=== PATIENT | male | born 1960 | race Caucasian/White ===

== ENCOUNTER 2020-05-21 14:13 | Observation (INO) ==
[2020-05-21 14:29] VITALS: BMI 25.7
[2020-05-21] MEDS ORDERED: NS 250 ML IV 250 ML IV ONE ×2 (15:25→20:36)
[2020-05-21 15:27] LABS: BASOPHILS # (AUTO) 0.1 X10^3/uL (0.0-0.1); EOSINOPHILS % (AUTO) 0.2 % (0.9-2.9); HEMOGLOBIN 14.8 g/dL (13.5-18.0); MONOCYTES # (AUTO) 1.2 x10^3/uL (0.3-0.8)
[2020-05-21] MEDS: NS 250 ML IV 250 ML IV STA ×2 (15:32→20:45)
[2020-05-21 15:35] LABS: BASOPHILS % (AUTO) 0.5 % (0.2-1.0); HEMATOCRIT 44.8 % (42.0-54.0); LYMPHOCYTES # (AUTO) 1.6 X10^3/uL (1.3-2.9); LYMPHOCYTES % (AUTO) 8.4 % (21.0-51.0); MEAN CORPUSCULAR HGB CONC 33.1 g/dL (33.0-35.0); MEAN CORPUSCULAR VOLUME 102.8 fL (80.0-100.0); MONOCYTES % (AUTO) 5.9 % (0.0-13.0); NEUTROPHILS # (AUTO) 16.7 x10^3/uL (2.2-4.8); PLATELET COUNT 221 X10^3/uL (150.0-450.0); RED BLOOD COUNT 4.36 X10^6/uL (4.7-6.0); WHITE BLOOD COUNT 19.7 X10^3/uL (3.6-10.0)
[2020-05-21 15:36] LABS: ALANINE AMINOTRANSFERASE 118 Units/L (12-78); ALKALINE PHOSPHATASE 613 Units/L (46-116); AMYLASE 32 Units/L (25-115); ASPARTATE AMINO TRANSFERASE 233 Units/L (15-37); BLOOD UREA NITROGEN 22 mg/dL (7-18); CARBON DIOXIDE 26.9 mmol/L (21-32); CHLORIDE 100 mmol/L (98-107); COR CA(FOR HYPOALB) 10.6 mg/dL (8.5-10.1); CREATININE 1.25 mg/dL (0.70-1.30); LIPASE 173 Units/L (73-393); SODIUM 138 mmol/L (136-145); TOTAL PROTEIN 6.1 g/dL (6.4-8.2); eGFR NON BLACK RACES > 60 (>60)
[2020-05-21 16:18] LABS: GIANT PLATELET RARE; PLATELET MORPHOLOGY COMMENT NORMAL (NORMAL); TARGET CELLS SLIGHT
--- NOTE | 2020-05-21 17:56 | DR.DIZZY ---
HPI Time seen Time Seen by Provider: 05/21/20 15:05 PCP Primary Care Physician: FELIPA HPI Comment HPI Comment: PATIENT WITH A HISTORY OF LIVER DISEASE, WITH ASCITES UNDERWENT PARACENTESIS AT [facility] COMPLAINS OF LOW BLOOD PRESSURE AND WEAKNESS TODAY. DENIES ABDOMINAL PAIN, CHEST PAIN, DYSPNEA OR DIARRHEA. PATIENT COMPLAINS OF A NONPRODUCTIVE COUGH, DENIES DYSPNEA OR CHEST PAIN. Complaint Chief Complaint Doctor Comments: WEAKNESS AND DIZZINESS Chief Complaint:: PT COMPLAINTS OF FLUIDS BUILT UP, LOW BP, DIZZINESS, NO APPETITIE, WEAK AND STATES I HAVE TO LAY DOWN SOMEWHERE. HAD ABDOMEN PARACETITIS DONE IN [facility] Self Treatment fo Chief Complaint: WAS IN [facility] IN [facility] 05/11/20 COVID-19 Coronavirus risk:travel/contact w/high risk person: No Has patient experienced Coronavirus symptoms: No Source History Provided: Patient and Family Member Mode of Arrival Mode of Arrival: Wheelchair Timing Onset of Chief Complaint: 05/18/20 Symptom Onset: Known Location of Weakness Weakness Location: Generalized Context Stroke Symptoms: None Associated signs and symptoms Associated Signs and Symptoms: Faintness and Weak PMH PMH Past Medical History: Yes Past Medical History: Angina Past Surgical History: Yes Surgical History: Other Past Surgical History Comment: HERNIA Family History History of Family Medical Conditions: Yes Family Medical History: Cancer Social History Does any household member use tobacco: Yes Alcohol Use: DAILY Do you use any recreational Drugs:: No Lives With: Spouse Lives Where: Home Travel Risk Coronavirus risk:travel/contact w/high risk person: No Has patient experienced Coronavirus symptoms: No Infectious screening In the last 2 months have you had wt loss of >10#?: NO Have you had fever, night sweats or hemotysis?: No Have you traveled outside the country in the last 6 months?: No Isolation: Standard ROS Review of Systems Constitutional: See HPI Eyes: No Symptoms Reported ENTM: No Symptoms Reported Respiratoy: No Symptoms Reported Cardiovascular: No Symptoms Reported Gastrointestinal/Abdominal: No Symptoms Reported Genitourinary: No Symptoms Reported Neurological: No Symptoms Reported Musculoskeletal: No Symptoms Reported Integumentary: No Symptoms Reported Hematologic/Lymphatic: No Symptoms Reported Endocrine: No Symptoms Reported Psychiatric: No Symptoms Reported All Other Systems: Reviewed and Negative PE Vital Signs Vitals: Temperature 98.4 F Pulse Rate 91 Respiratory Rate 15 Blood Pressure 95/67 O2 Sat by Pulse Oximetry 97 General Limitations: No Limitations General Appearance: Alert and In No Apparent Distress Head Head Exam: Normal Inspection Eyes Eye exam: Normal Appearance, PERRL and EOMI Pupils: Regular, Round: Bilateral and Irregular: Bilateral ENT ENT Exam: Normal Exam, Normal Oropharynx and Normal External Ear Exam Neck Neck Exam: Normal Inspection and Full ROM Chest Chest Inspection: Normal Inspection Respiratory Respiratory Exam: Normal Lung Sounds Bilat Respiratory Exam: Bilateral: Clear to Auscultation Cardiovascular Cardiovascular Exam: Regular Rate and Normal Rhythm Abdominal Exam Abdominal Exam: Normal Inspection, Normal Bowel Sounds and Soft Abdominal Tenderness: Epigastrium and Mild Rectal Rectal Exam: Deferred Extremeties Extremities Exam: Normal Inspection and Full ROM Back Back Exam: Normal Inspection and Full ROM Neurologic Neurological Exam: Alert and Oriented X3 Psychiatric Psychiatric Exam: Normal Affect and Normal Mood Skin Skin Exam: Warm, Dry, Intact and Normal Color MDM Differential Diagnosis Differential Diagnosis: Dehydration Differential Diagnosis Comment: PNEUMONIA, CHRONIC LIVER DISEASE, COVID COURSE Treatment Treatment: IV NORMAL SALINE 50ML/HR AND AFTER 2 SETS BLOOD CULTURES, ADMINISTERED ROCEPHIN 1GM IVBP Reevaluation 1st: Unchanged Consultation Call Returned: 15:53 Consultation Comments: DISCUSSED WITH DR BOSS FOR ADMIT TO OBSERVATION ROR Labs Reviewed Laboratory Results Reviewed?: Yes Result Diagrams: 05/21/20 14:50 05/21/20 14:50 Laboratory: WBC 19.7 X10^3/uL (3.6-10.0) H 05/21/20 14:50 RBC 4.36 X10^6/uL (4.7-6.0) L 05/21/20 14:50 Hgb 14.8 g/dL (13.5-18.0) 05/21/20 14:50 Hct 44.8 % (42.0-54.0) 05/21/20 14:50 MCV 102.8 fL (80.0-100.0) H 05/21/20 14:50 MCH 34.0 pg (27.0-34.0) 05/21/20 14:50 MCHC 33.1 g/dL (33.0-35.0) 05/21/20 14:50 RDW 15.0 % (11.6-16.5) 05/21/20 14:50 Plt Count 221 X10^3/uL (150.0-450.0) 05/21/20 14:50 Plt Count Comment Adequate (ADEQUATE) 05/21/20 14:50 MPV 12.0 fL (7.4-11.0) H 05/21/20 14:50 Neut % (Auto) 85.0 % (42.0-75.0) H 05/21/20 14:50 Lymph % (Auto) 8.4 % (21.0-51.0) L 05/21/20 14:50 [place] % (Auto) 5.9 % (0.0-13.0) 05/21/20 14:50 Eos % (Auto) 0.2 % (0.9-2.9) L 05/21/20 14:50 Baso % (Auto) 0.5 % (0.2-1.0) 05/21/20 14:50 Neut # (Auto) 16.7 x10^3/uL (2.2-4.8) H 05/21/20 14:50 Lymph # (Auto) 1.6 X10^3/uL (1.3-2.9) 05/21/20 14:50 Brantley # (Auto) 1.2 x10^3/uL (0.3-0.8) H 05/21/20 14:50 Eos # (Auto) 0.0 x10^3/uL (0.0-0.2) 05/21/20 14:50 Baso # (Auto) 0.1 X10^3/uL (0.0-0.1) 05/21/20 14:50 Absolute Nucleated RBC 0.1 /100WBC 05/21/20 14:50 Giant Platelets Rare 05/21/20 14:50 Plt Morphology Comment Normal (NORMAL) 05/21/20 14:50 RBC Morphology Abnormal (NORMAL) 05/21/20 14:50 Target Cells Slight A 05/21/20 14:50 Sodium 138 mmol/L (136-145) 05/21/20 14:50 Corrected Sodium TNP 05/21/20 14:50 Potassium 4.4 mmol/L (3.5-5.1) 05/21/20 14:50 Chloride 100 mmol/L (98-107) 05/21/20 14:50 Carbon Dioxide 26.9 mmol/L (21-32) 05/21/20 14:50 BUN 22 mg/dL (7-18) H 05/21/20 14:50 Creatinine 1.25 mg/dL (0.70-1.30) 05/21/20 14:50 Est GFR (MDRD) Af Amer > 60 (>60) 05/21/20 14:50 Est GFR (MDRD) Non-Af > 60 (>60) 05/21/20 14:50 Glucose 107 mg/dL (65-99) H 05/21/20 14:50 Calcium 9.0 mg/dL (8.5-10.1) 05/21/20 14:50 Corrected Calcium 10.6 mg/dL (8.5-10.1) H 05/21/20 14:50 Total Bilirubin 6.30 mg/dL (0.2-1.0) H 05/21/20 14:50 AST 233 Units/L (15-37) H 05/21/20 14:50 ALT 118 Units/L (12-78) H 05/21/20 14:50 Alkaline Phosphatase 613 Units/L (46-116) H 05/21/20 14:50 Total Protein 6.1 g/dL (6.4-8.2) L 05/21/20 14:50 Albumin 2.0 g/dL (3.4-5.0) L 05/21/20 14:50 Globulin 4.1 g/dL (2.5-4.5) 05/21/20 14:50 Albumin/Globulin Ratio 0.5 Ratio (1.1-2.1) L 05/21/20 14:50 Amylase 32 Units/L (25-115) 05/21/20 14:50 Lipase 173 Units/L (73-393) 05/21/20 14:50 Specimen Type Clean catch urine 05/21/20 19:05 Urine Color [place]anna (YELLOW) 05/21/20 19:05 Urine Appearance Cloudy (CLEAR) 05/21/20 19:05 Urine pH 5.0 (5.0 - 8.0) 05/21/20 19:05 Ur Specific [place] 1.025 (1.000-1.030) 05/21/20 19:05 Urine Protein 1+ (NEGATIVE) 05/21/20 19:05 Urine Glucose (UA) Negative (NEGATIVE) 05/21/20 19:05 Urine Ketones 1+ (NEGATIVE) 05/21/20 19:05 Urine Occult Blood 1+ (NEGATIVE) 05/21/20 19:05 Urine Nitrite Positive (NEGATIVE) 05/21/20 19:05 Urine Bilirubin 3+ (NEGATIVE) 05/21/20 19:05 Urine Urobilinogen 3+ (NORMAL) 05/21/20 19:05 Ur Leukocyte Esterase 2+ (NEGATIVE) 05/21/20 19:05 Urine RBC 5-10 /HPF (0-3) A 05/21/20 19:05 Urine WBC 10-20 /HPF (0-5) A 05/21/20 19:05 Ur Squamous Epith Cells Few /HPF (NEGATIVE) 05/21/20 19:05 Amorphous Sediment 3+ /HPF (NEGATIVE) 05/21/20 19:05 Urine Bacteria 1+ /HPF (NEGATIVE) 05/21/20 19:05 Ur Culture Indicated? Yes/culture set up 05/21/20 19:05 SARS-CoV-2 (PCR) Negative (NEGATIVE) 05/21/20 20:00 Influenza Type A (PCR) Negative (NEGATIVE) 05/21/20 20:00 Influenza Type B (PCR) Negative (NEGATIVE) 05/21/20 20:00 RSV (PCR) Negative (NEGATIVE) 05/21/20 20:00 XRAY X-ray Results: CHEST XRAY C/W RIGHT BASILAR DENSITY EKG Rate: 96 [place]: Normal Rhythm: NSR (PROLONGED QT) Opioid Opioid Risk Tool Age (Abdirahman box if 16-45): No Total: 0 Total Score Risk Category: Low Risk Copyright: Wang CASILLAS predicting aberrant behaviors Diagnosis Discharge Problem: Pneumonia, Urinary tract infection, Chronic alcoholic liver disease
--- NOTE | 2020-05-21 18:28 | RAD ---
HISTORYHPI Comment: PATIENT WITH A HISTORY OF LIVER DISEASE, WITH ASCITES UNDERWENT PARACENTESIS AT [facility] COMPLAINS OF LOW BLOOD PRESSURE AND WEAKNESS TODAY. DENIES ABDOMINAL PAIN, CHEST PAIN, DYSPNEA OR DIARRHEASTUDYCHEST, 1 VIEWCOMPARISONNoneFINDINGSThe trachea is midline. The cardiac silhouette is unremarkable . The lungs demonstrate hazy density in the right lung base which could be due to early changes pneumonia. The bony thorax is unremarkable.IMPRESSIONHazy density in the right lung base which could be due to early changes of pneumoniaElectronically signed by: ALPA STARR (May 21, 2020 18:24:47)
[2020-05-21 19:12] LABS: BILIRUBIN,URINE 3+ (NEGATIVE); BLOOD/HEMOGLOBIN,URINE 1+ (NEGATIVE); GLUCOSE, URINE NEGATIVE (NEGATIVE); KETONES,URINE 1+ (NEGATIVE); LEUKOCYTE ESTERASE ,URINE 2+ (NEGATIVE); NITRITES,URINE POSITIVE (NEGATIVE); PROTEIN,URINE 1+ (NEGATIVE); UROBILINOGEN,URINE 3+ (NORMAL)
[2020-05-21 19:27] LABS: APPEARANCE,URINE CLOUDY (CLEAR); COLOR,URINE AMBER (YELLOW)
[2020-05-21 19:28] LABS: AMORPHOUS SEDIMENT,UR 3+ /HPF (NEGATIVE); BACTERIA,URINE 1+ /HPF (NEGATIVE); SQUAMOUS EPITHELIAL CELL,UR FEW /HPF (NEGATIVE)
[2020-05-21] MEDS ORDERED: ROCEPHIN 1 GRAM IV PREMIX 1 G/50 ML IV.SOLN. IV ONE ×2 (20:03→20:36)
[2020-05-21] MEDS ORDERED: ZOFRAN INJ 4 MG VIAL IVP PRN (22:49)
[2020-05-21] MEDS ORDERED: ZITHROMAX INJ 500 MG VIAL 500 MG in NS 250 ML IV 250 ML IV SCH (23:00)
[2020-05-21] MEDS: NS 1000 ML 1,000 ML IV SCH (23:43)
[2020-05-22] MEDS ORDERED: SALINE 3% 15 ML NEB TX NEB ONE (00:36)
[2020-05-22] MEDS ORDERED: SALINE 3% 15 ML NEB TX ONE (00:39)
[2020-05-22] MEDS: DUONEB 0.5 MG/3 MG (3 mL) NEB SCH ×4 (08:31→20:25)
[2020-05-22 09:27] LABS: BASOPHILS # (AUTO) 0.1 X10^3/uL (0.0-0.1); BASOPHILS % (AUTO) 0.3 % (0.2-1.0); EOSINOPHILS # (AUTO) 0.1 x10^3/uL (0.0-0.2); EOSINOPHILS % (AUTO) 0.3 % (0.9-2.9); HEMATOCRIT 41.9 % (42.0-54.0); HEMOGLOBIN 13.8 g/dL (13.5-18.0); LYMPHOCYTES # (AUTO) 1.4 X10^3/uL (1.3-2.9); LYMPHOCYTES % (AUTO) 8.6 % (21.0-51.0); MEAN CORPUSCULAR HEMOGLOBIN 33.8 pg (27.0-34.0); MEAN CORPUSCULAR HGB CONC 32.8 g/dL (33.0-35.0); MEAN PLATELET VOLUME 11.8 fL (7.4-11.0); NEUTROPHILS # (AUTO) 13.7 x10^3/uL (2.2-4.8); NEUTROPHILS % (AUTO) 84.8 % (42.0-75.0); PLATELET COUNT 183 X10^3/uL (150.0-450.0); RED BLOOD COUNT 4.07 X10^6/uL (4.7-6.0); RED CELL DISTRIBUTION WIDTH 15.5 % (11.6-16.5); WHITE BLOOD COUNT 16.2 X10^3/uL (3.6-10.0)
[2020-05-22 09:43] LABS: ALANINE AMINOTRANSFERASE 105 Units/L (12-78); ALBUMIN 1.8 g/dL (3.4-5.0); ALKALINE PHOSPHATASE 566 Units/L (46-116); ASPARTATE AMINO TRANSFERASE 171 Units/L (15-37); BLOOD UREA NITROGEN 24 mg/dL (7-18); CALCIUM 8.4 mg/dL (8.5-10.1); CARBON DIOXIDE 27.7 mmol/L (21-32); CHLORIDE 102 mmol/L (98-107); COR CA(FOR HYPOALB) 10.2 mg/dL (8.5-10.1); CREATININE 1.27 mg/dL (0.70-1.30); SODIUM 138 mmol/L (136-145); TOTAL PROTEIN 5.5 g/dL (6.4-8.2); eGFR NON BLACK RACES > 60 (>60)
[2020-05-22] MEDS: FORTAZ or TAZICEF VIAL INJ 1 G in NS 100 ML IV + SPIKE MINIBAG* 100 ML IV SCH ×3 (10:21→21:00)
[2020-05-22] MEDS: LEVAQUIN PREMIX IV 500 MG 500 MG/100 ML BAG IV SCH (10:22)
[2020-05-22] MEDS: LOVENOX INJ 40 MG SYR SC SCH (11:48)
--- NOTE | 2020-05-22 15:08 | US ---
HISTORYABDOMINAL DISTENTION, LIVER DISEASESTUDYLIVERCOMPARISONReference is made to the CT abdomen dated May 13, 2020.TECHNIQUEMultiple ryan scale and color flow Doppler images of the abdomen were obtained.FINDINGSThe liver appears normal contour. Increased echogenicity of the liver, compatible hepatic steatosis. The liver measures approximately 16 cm in the craniocaudal dimension. No intraparenchymal mass or intrahepatic biliary ductal dilatation can be identified.The gallbladder wall is upper limits of normal, measuring 3.5 mm. The common bile duct is normal measuring 0.9 mm.The visualized portions of the pancreas are normal in their echotexture and size.The right kidney is normal in echotexture and size. The right kidney measures 11.3 x 5.1 x 5.9 cm. No mass, hydronephrosis, or stone can be identified.Ascites seen in all 4 quadrants.IMPRESSION1. Gallbladder wall thickening, which may be exaggerated by ascites.2. Ascites in all 4 quadrants.3. Suggestion of hepatic steatosis.Electronically signed by: Winston Blackburn (May 22, 2020 15:06:33)
--- NOTE | 2020-05-22 15:36 | DR.CONSULT ---
Consult - Consultation for Day of: Date: 05/22/20 - Chief Complaint Chief Complaint: Patient referred for for liver disease and ascites. Patient with complaints of RLQ pain. - History of Present Illness History of Present Illness: Patient is a 60 yo male who was referred for for liver disease and ascites. Patient with complaints of RLQ pain. Patient denies dysphagia, dyspepsia, nausea, vomiting, constipation, diarrhea, melena and hematochezia. Patient states he was in [facility] 05/11/20 and had paracentesis, patient states they told him everything was ok with his liver that he did not have cirrhosis. Last colon was 10 years ago no polyps, No previous EGD noted. Patient with history of heavy alcohol use drinking a pint a day for the last 10-20 years quit on Thursday. WBC 16.2, Hgb 13.8, Plt 183, BUN 24, Creatinine 1.27, T. Bili 4.5, AST 171, ALT 105, ALP 566 - Past Medical History Past Medical History: Angina - Past Surgical History Surgical History: Other - Family History Family Medical History: Cancer - Social History Does patient currently use any type of tobacco product: Yes Have you used tobacco products in the last 12 months: Yes Type of Tobacco Use: Cigarettes Does any household member use tobacco: Yes Alcohol Use: Heavy, DAILY Drug Use: None - Medications Home Medications: No Known Drug Allergies Allergy (Verified 05/21/20 23:03) CONTINUE taking the following medications alprazolam 0.5 mg PO DAILY 05/22/20 [History] - Review of Systems Gastrointestinal: Abdominal Pain. denies: Nausea, Vomiting, Diarrhea, Constipation, Melena, Hematochezia, Other - Physical Exam Vital Signs: Temperature 97.1 F Pulse Rate [Left Brachial] 85 Pulse Rate 85 Respiratory Rate 18 Blood Pressure [Left Arm] 96/67 Blood Pressure 95/67 O2 Sat by Pulse Oximetry 94 Oriented: Normal Eyes: Normal Ear: Normal Nose: Normal Throat: Normal Respiratory: Clear Throughout Cardiovascular: Normal : Normal Auscultation: Bowel Sounds: Normal Palpation: Other (Abdominal distention, ascites) Tenderness: Normal Skin: Normal Musculoskeletal: Normal Psychiatric: Normal Mood Description: Calm Affect: Normal Speech Pattern: Clear, Appropriate - Plan Plan: Assesment. 1. Abnormal LFTs, Alcoholic steatohepatitis. 2. Cirrhosis with portal hyeprtension with Ascites likely secondary to ETOH abuse r/o other etiologies. Plan. 1. Monitor LFTs, Abnormal LFT Panel, Hep profile, Abdominal US, EGD On . Plan reviewed with Dr. Coronel - Allergies Allergies/Adverse Reactions: Allergies Allergy/AdvReac Type Severity Reaction Status Date / Time No Known Drug Allergies Allergy Verified 05/21/20 23:03
[2020-05-22 17:12] LABS: BILIRUBIN,DIRECT 3.3 mg/dL (0-0.2)
[2020-05-22] MEDS: NS 1000 ML 1,000 ML IV SCH (18:16)
[2020-05-22] MEDS ORDERED: XANAX PO PRN (19:52)
[2020-05-22] MEDS ORDERED: ROCEPHIN 1 GRAM IV PREMIX 1 G/50 ML IV.SOLN. IV SCH (20:00)
--- NOTE | 2020-05-22 21:02 | DR.H&P ---
H&P - History & Physical for Day of: H&P Date: 05/21/20 - Chief Complaint Chief Complaint: WEAKNESS, LOW BLOOD PRESSURE, NON-PRODUCTIVE COUGH, ABDOMINAL SWELLING, DIZZINESS, AND NO APPETITE - History of Present Illness History of Present Illness: WEAKNESS, LOW BLOOD PRESSURE, NON-PRODUCTIVE COUGH, DIZZINESS, AND NO APPETITE - Past Medical History Past Medical History: Angina Additional Medical History: CHRONIC LIVER DISEASE - Past Surgical History Surgical History: Other - Family History Family Medical History: Cancer - Social History Does patient currently use any type of tobacco product: Yes Have you used tobacco products in the last 12 months: Yes Type of Tobacco Use: Cigarettes Does any household member use tobacco: Yes Alcohol Use: Heavy, DAILY Drug Use: None - Medications Home Medications: No Known Drug Allergies Allergy (Verified 05/21/20 23:03) CONTINUE taking the following medications alprazolam 0.5 mg PO DAILY 05/22/20 [History] - Review of Systems Constitutional: Weakness, Malaise, Other (DECREASED APPETITE ) Eyes: No Symptoms Reported ENT: No Symptoms Reported Respiratory: Cough, Shortness of Breath Cardiovascular: Light Headedness Gastrointestinal: See HPI (ABDOMINAL DISTENTION ) Genitourinary: No Symptoms Reported Musculoskeletal: No Symptoms Reported Skin: No Symptoms Reported Neurological: Weakness - Physical Exam Vital Signs: Temperature 97.5 F Pulse Rate [Left Brachial] 88 Pulse Rate 85 Respiratory Rate 18 Blood Pressure [Left Arm] 90/70 Blood Pressure 95/67 O2 Sat by Pulse Oximetry 95 Oriented: Normal Eyes: Normal Ear: Normal Nose: Normal Throat: Normal Respiratory: Diminished Throughout Cardiovascular: Tachycardia Auscultation: Bowel Sounds: Normal, Decreased Palpation: Normal Tenderness: Other (ABDOMINAL DISTENTION ) Skin: Normal Musculoskeletal: Normal Psychiatric: Normal Mood Description: Calm Affect: Normal Speech Pattern: Clear - Assessment/Plan (1) Pneumonia Qualifiers: Pneumonia type: due to unspecified organism Laterality: right Status: Acute Plan: ADMIT, SUPPLEMENTAL OXYGEN, NS AT KVO, FORTAZ 1G IV Q8H, LEVAQUIN 500MG IV DAILY, DUONEBS QID, ZOFRAN 4MG IV Q8H, LOVENOX 40MG SC DAILY, AND XANAX 0.5MG PO HS PRN. (2) Urinary tract infection Qualifiers: Urinary tract infection type: acute cystitis Hematuria presence: with hematuria Qualified Code(s): N30.01 - Acute cystitis with hematuria Status: Acute (3) Chronic liver disease Status: Chronic - Allergies Allergies/Adverse Reactions: Allergies Allergy/AdvReac Type Severity Reaction Status Date / Time No Known Drug Allergies Allergy Verified 05/21/20 23:03
[2020-05-23] MEDS: NS 1000 ML 1,000 ML IV SCH (02:15)
[2020-05-23] MEDS: FORTAZ or TAZICEF VIAL INJ 1 G in NS 100 ML IV + SPIKE MINIBAG* 100 ML IV SCH (05:22)
[2020-05-23 05:26] LABS: BASOPHILS % (AUTO) 0.2 % (0.2-1.0); EOSINOPHILS # (AUTO) 0.1 x10^3/uL (0.0-0.2); EOSINOPHILS % (AUTO) 0.6 % (0.9-2.9); HEMATOCRIT 40.1 % (42.0-54.0); LYMPHOCYTES # (AUTO) 1.9 X10^3/uL (1.3-2.9); LYMPHOCYTES % (AUTO) 11.7 % (21.0-51.0); MEAN CORPUSCULAR HEMOGLOBIN 33.7 pg (27.0-34.0); MEAN CORPUSCULAR HGB CONC 32.4 g/dL (33.0-35.0); MEAN CORPUSCULAR VOLUME 104.1 fL (80.0-100.0); MONOCYTES # (AUTO) 1.1 x10^3/uL (0.3-0.8); NEUTROPHILS # (AUTO) 13.2 x10^3/uL (2.2-4.8); NEUTROPHILS % (AUTO) 80.5 % (42.0-75.0); PLATELET COUNT 192 X10^3/uL (150.0-450.0); RED BLOOD COUNT 3.86 X10^6/uL (4.7-6.0); WHITE BLOOD COUNT 16.4 X10^3/uL (3.6-10.0)
[2020-05-23 05:45] LABS: ALANINE AMINOTRANSFERASE 99 Units/L (12-78); ALBUMIN 1.7 g/dL (3.4-5.0); ALKALINE PHOSPHATASE 540 Units/L (46-116); ASPARTATE AMINO TRANSFERASE 157 Units/L (15-37); BLOOD UREA NITROGEN 24 mg/dL (7-18); CALCIUM 8.3 mg/dL (8.5-10.1); CARBON DIOXIDE 25.5 mmol/L (21-32); CHLORIDE 102 mmol/L (98-107); COR CA(FOR HYPOALB) 10.1 mg/dL (8.5-10.1); SODIUM 137 mmol/L (136-145); TOTAL PROTEIN 5.3 g/dL (6.4-8.2); eGFR NON BLACK RACES 60 (>60)
[2020-05-23 05:55] LABS: GIANT PLATELET FEW; PLATELET MORPHOLOGY COMMENT ABNORMAL (NORMAL)
--- NOTE | 2020-05-23 06:09 | RAD ---
HISTORYShortness of breathSTUDYChest AP [id number] heart is within normal limits in size. The vimal are normal. The lungs are hypoinflated. Haziness in the right lung base is again identified and likely represents infiltrate and is unchanged. The remainder of the lung gallagher are clear. No definite pleural effusions are identified. No pneumothoraces are identified. Bony thorax is unremarkable.IMPRESSIONHaziness in the right lung base is unchanged and likely represents infiltrateHypo inflationElectronically signed by: EVETTE ORR (May 23, 2020 06:07:25)
[2020-05-23] MEDS: DUONEB 0.5 MG/3 MG (3 mL) NEB SCH (08:11)
[2020-05-23] MEDS: LOVENOX INJ 40 MG SYR SC SCH (09:54)
[2020-05-23] MEDS: LEVAQUIN PREMIX IV 500 MG 500 MG/100 ML BAG IV SCH (09:54)
[2020-05-23 10:19] VITALS: BP 94/67
[2020-05-25 06:04] LABS: HEPATITIS B SURFACE ANTIGEN Negative (Negative)
[2020-05-28 06:37] LABS: ANTI-NUCLEAR ANTIBODY TEST None Detected (None Detected)
== END 2020-05-23 11:55 | disposition home or self-care (01) | DRG 194 ==
LOC: MED/SURG 14:19 → ER 14:19 → INTOOBSV 22:49 → OBSVTOIN 22:49 → MED/SURG 23:35
PROVIDERS: ADMIT Internal Medicine; ATTEND Internal Medicine
DX: J18.8 Other pneumonia, unspecified organism; N30.01 Acute cystitis with hematuria; E80.6 Other disorders of bilirubin metabolism; I95.89 Other hypotension; K70.9 Alcoholic liver disease, unspecified; R42 Dizziness and giddiness; R06.02 Shortness of breath; Z98.890 Other specified postprocedural states; Z20.822 Contact with and (suspected) exposure to COVID-19